=== PATIENT | female | born 1990 | race African-American/Black ===

== ENCOUNTER 2022-03-19 09:42 | Emergency (ER) | payer OTHER ==
[2022-03-19] MEDS ORDERED: Dexamethasone 10 MG/ML VIAL ONE (10:34)
== END 2022-03-19 10:40 | disposition home or self-care (01) ==
LOC: CSHERS 09:42
DX: J32.9 Chronic sinusitis, unspecified (principal); H66.92 Otitis media, unspecified, left ear; I10 Essential (primary) hypertension
CPT/HCPCS: 99283; J1100